=== PATIENT | male | born 1985 | race Caucasian/White ===

== ENCOUNTER 2017-08-14 23:55 | Emergency (ER) | payer MEDICAID, OTHER ==
[~2017-08-14] VITALS: Ht 177.8 cm; Wt 93.1 kg
[2017-08-15] MEDS ORDERED: SODIUM CHLORIDE 0.9% 1,000ML IVBOLUS ONE (01:00)
[2017-08-15 01:09] LABS: ALANINE AMINOTRANSFERASE 326 U/L (12-78); ALBUMIN 3.8 g/dL (3.4-5.0); ANION GAP 6 mmol/L (5-15); CALCIUM 8.8 mg/dL (8.5-10.1); CHLORIDE 100 mmol/L (98-107)
[2017-08-15 01:11] LABS: ALKALINE PHOSPHATASE 167 U/L (45-117); BILIRUBIN,TOTAL 0.5 mg/dL (0.2-1.0); TOTAL PROTEIN 7.5 g/dL (6.4-8.2)
[2017-08-15 01:18] LABS: BASOPHILS # (AUTO) 0.06 x10^3/uL (0-0.1); BASOPHILS % (AUTO) 1 % (0-1); EOSINOPHILS # (AUTO) 0.14 x10^3/uL (0-0.4); EOSINOPHILS % (AUTO) 2 % (1-7); LYMPHOCYTES # (AUTO) 3.17 x10^3/uL (1-3.4); LYMPHOCYTES % (AUTO) 42 % (22-44); MD NO; MEAN CORPUSCULAR HEMOGLOBIN 30.7 pg (27.5-34.5); MEAN CORPUSCULAR HGB CONC 33.8 g/dL (33.2-36.2); MEAN CORPUSCULAR VOLUME 90.7 fL (81-97); MEAN PLATELET VOLUME 9.8 fL (7.4-10.4); MONOCYTES # (AUTO) 0.79 x10^3/uL (0.2-0.8); MONOCYTES % (AUTO) 10 % (2-9); NEUTROPHILS # (AUTO) 3.44 x10^3/uL (1.8-6.8); NEUTROPHILS % (AUTO) 45 % (42-75); PLATELET COUNT 149 x10^3/uL (130-400); RED BLOOD COUNT 4.78 x10^6/uL (4.38-5.82); RED CELL DISTRIBUTION WIDTH 12.6 % (9.4-14.8)
[2017-08-15] MEDS ORDERED: METFORMIN (01:18)
[2017-08-15] MEDS ORDERED: GLIPIZIDE (01:19)
[2017-08-15 01:21] LABS: MICROSCOPIC NOT IND
[2017-08-15 01:24] LABS: CULTURE INDICATED? NO
[2017-08-15] MEDS ORDERED: INSULIN REGULAR 100 UNITS/ML, 3ML VIAL IV ONE (01:30)
[2017-08-15] MEDS ORDERED: INSULIN REGULAR 100 UNITS/ML, 3ML VIAL ONE (01:35)
[2017-08-15] MEDS ORDERED: IBUPROFEN 200 MG TABLET ONE (01:55)
[2017-08-15] MEDS ORDERED: INSULIN REGULAR 100 UNITS/ML, 3ML VIAL IVPush ONE (02:00)
[2017-08-15] MEDS ORDERED: IBUPROFEN 200 MG TABLET PO ONE (02:00)
[2017-08-15 03:03] VITALS: BP 124/86
[2017-08-15 03:40] LABS: ACETONE, SERUM Trace (10mg/dL) mg/dL (Negative)
== END 2017-08-15 03:30 | disposition home or self-care (01) ==
LOC: ED 23:59
DX: G89.29 Other chronic pain (principal); M79.671 Pain in right foot; N28.9 Disorder of kidney and ureter, unspecified; E11.65 Type 2 diabetes mellitus with hyperglycemia
CPT/HCPCS: 36415; 73630; 80053; 81003; 82010; 82803; 85025; 96374; 99285; J7030